=== PATIENT | female | born 1980 | race Caucasian/White ===

== ENCOUNTER 2019-02-04 09:43 | Emergency (ER) | payer OTHER | END 2019-02-04 10:30 | disposition left against medical advice (07) | LOC: ER 09:43 | DX: R05 Cough (principal); Z53.21 Procedure and treatment not carried out due to patient leaving prior to being seen by health care provider ==

== ENCOUNTER 2019-02-05 05:00 | Emergency (ER) | payer OTHER ==
[~2019-02-05] VITALS: Ht 162.6 cm; Wt 68.0 kg
[2019-02-05 07:45] VITALS: BP 111/74
== END 2019-02-05 07:49 | disposition home or self-care (01) ==
LOC: ER 05:00
DX: J06.9 Acute upper respiratory infection, unspecified (principal); F17.200 Nicotine dependence, unspecified, uncomplicated
CPT/HCPCS: 99283

== ENCOUNTER 2021-07-02 23:45 | Emergency (ER) | payer MEDICAID, OTHER ==
[~2021-07-02] VITALS: Ht 162.6 cm; Wt 75.0 kg
[2021-07-03] MEDS ORDERED: KETOROLAC 60MG/2ML VIAL IM ONE
[2021-07-03 03:12] VITALS: BP 114/42
[2021-07-03] MEDS ORDERED: KETOROLAC 60MG/2ML VIAL IM NR (03:15)
[2021-07-03] MEDS ORDERED: NAPR-681 MT (03:42)
== END 2021-07-03 03:50 | disposition home or self-care (01) ==
LOC: ER 23:45
DX: M25.562 Pain in left knee (principal); M25.521 Pain in right elbow; Z88.0 Allergy status to penicillin
CPT/HCPCS: 73080; 73562; 81025; 96372; 99284; J1885

== ENCOUNTER 2023-06-08 07:46 | Emergency (ER) | payer MEDICAID, OTHER ==
[~2023-06-08] VITALS: Ht 162.6 cm; Wt 83.0 kg
[~2023-06-08 07:46] MED LIST: NAPR-681 MT
[2023-06-08 07:52] VITALS: O2SAT 100
[2023-06-08] MEDS: ACETAMINOPHEN 325MG TABLET PO ONE (08:59)
[2023-06-08] MEDS ORDERED: TOPUD PO (09:47)
[2023-06-08 10:04] VITALS: BP 118/82; PULSE 68; RESP 16; TEMP 98.2
== END 2023-06-08 10:07 | disposition home or self-care (01) ==
LOC: ER 07:46
DX: M79.605 Pain in left leg (principal)
CPT/HCPCS: 81025; 93971; 73590; 99284; Z7610

== ENCOUNTER 2023-08-06 23:46 | Emergency (ER) | payer MEDICAID ==
[~2023-08-06] VITALS: Ht 160 cm; Wt 77.0 kg
[~2023-08-06 23:46] MED LIST changes: +TOPUD PO
[2023-08-06 23:52] VITALS: O2SAT 99
[2023-08-06 23:55] VITALS: TEMP 98.2
[2023-08-07 05:00] LABS: BASOPHILS % 0.7 % (0.0-2.0); EOSINOPHILS % 1.4 % (0.0-5.0); HEMATOCRIT. 40.9 % (36.0-48.0); LYMPHOCYTES % 22.8 % (20.0-50.0); MEAN CORPUSCULAR HEMOGLOBIN 29.7 pg (28.0-32.0); MEAN CORPUSCULAR HGB CONC 34.3 g/dL (31.0-37.0); MEAN CORPUSCULAR VOLUME 86.8 fL (81.0-99.0); MONOCYTES % 6.7 % (2.0-8.0); NEUTROPHILS % 68.4 % (40.0-76.0); PLATELET 235 x1000/uL (130-400); RED BLOOD CELL COUNT 4.71 mill/uL (4.2-5.4); RED CELL DISTRIBUTION WIDTH 13.5 % (11.6-14.6); WHITE BLOOD COUNT 10.1 x1000/uL (4.5-11.0)
[2023-08-07 05:09] LABS: CHLORIDE 107 mEq/L (98-107); POTASSIUM 3.8 mEq/L (3.5-5.1); SODIUM 137 mEq/L (136-145)
[2023-08-07 05:10] LABS: CALCIUM 9.1 mg/dL (8.7-10.4); CARBON DIOXIDE 24 mEq/L (21-32)
[2023-08-07 05:15] LABS: CREATININE 0.6 mg/dL (0.6-1.0); GLUCOSE 113 mg/dL (70-105); UREA NITROGEN BLOOD 13 mg/dL (9-23)
[2023-08-07 05:42] LABS: HCG SCREEN NEGATIVE
[2023-08-07] MEDS ORDERED: IBUP-2028 MT (05:45)
[2023-08-07 06:15] VITALS: BP 110/60; PULSE 58; RESP 14
== END 2023-08-07 06:16 | disposition home or self-care (01) ==
LOC: ER 23:46
DX: R42 Dizziness and giddiness (principal); R53.1 Weakness
CPT/HCPCS: 36415; 80048; 84703; 85025; 93005; 93971; 99284

== ENCOUNTER 2024-09-17 10:18 | Emergency (ER) | payer MEDICAID ==
[~2024-09-17] VITALS: Ht 162.6 cm; Wt 77.0 kg
[~2024-09-17 10:18] MED LIST changes: +IBUP-2028 MT
[2024-09-17 10:40] VITALS: O2SAT 99
[2024-09-17 11:35] LABS: BASOPHILS % 0.5 % (0.0-2.0); EOSINOPHILS % 2.5 % (0.0-5.0); HEMATOCRIT. 43.5 % (36.0-48.0); HEMOGLOBIN. 14.6 g/dL (12.0-16.0); LYMPHOCYTES % 27.5 % (20.0-50.0); MEAN PLATELET VOLUME 7.9 fl (7.4-10.4); MONOCYTES % 8.0 % (2.0-8.0); NEUTROPHILS % 61.5 % (40.0-76.0); PLATELET 230 x1000/uL (130-400); RED BLOOD CELL COUNT 5.04 mill/uL (4.2-5.4); RED CELL DISTRIBUTION WIDTH 13.7 % (11.6-14.6)
[2024-09-17 11:56] LABS: CREATININE 0.7 mg/dL (0.6-1.0)
[2024-09-17 11:57] LABS: TROPONIN I HIGH SENSITIVITY < 4 ng/L (3.0-34); UREA NITROGEN BLOOD 17 mg/dL (9-23)
[2024-09-17 11:58] LABS: ASPARTATE AMINOTRANSFERASE 13 IU/L (<34)
[2024-09-17 11:59] LABS: BILIRUBIN DIRECT 0.1 mg/dL (<=3.0); BILIRUBIN TOTAL 0.5 mg/dL (0.1-1.0); PROTEIN TOTAL 6.8 g/dL (6.0-8.3)
[2024-09-17] MEDS: DIAZEPAM 2 MG TABLET PO ONE (11:59)
[2024-09-17] MEDS: MECLIZINE 25MG TABLET PO ONE (11:59)
[2024-09-17 14:29] LABS: *AMPHETAMINES SCREEN URINE NEGATIVE (NEGATIVE); *BARBITURATES SCREEN URINE NEGATIVE (NEGATIVE); *BENZODIAZEPINES SCREEN URINE NEGATIVE (NEGATIVE); *COCAINE SCREEN URINE NEGATIVE (NEGATIVE)
[2024-09-17 14:30] LABS: CANNABINOID URINE SCREEN NEGATIVE (NEGATIVE); ECSTASY MDMA SCREEN URINE NEGATIVE (NEGATIVE); METHADONE URINE SCREEN NEGATIVE (NEGATIVE); OPIATES URINE SCREEN NEGATIVE (NEGATIVE); PHENCYCLIDINE URINE SCREEN NEGATIVE (NEGATIVE)
[2024-09-17] MEDS ORDERED: MECL-299 MT (15:35)
[2024-09-17 15:39] VITALS: BP 104/64; PULSE 58; RESP 16; TEMP 36.7; O2SAT 99
== END 2024-09-17 15:44 | disposition home or self-care (01) ==
LOC: ER 10:18
DX: R55 Syncope and collapse (principal); Z88.0 Allergy status to penicillin; Z79.899 Other long term (current) drug therapy
CPT/HCPCS: 99285; 71045; 80076; 80305; 80048; 81025; 85025; 84484; 36415; 93005; J8597